=== PATIENT | male | born 1965 | race Two or more races ===

== ENCOUNTER 2023-01-10 08:41 | Outpatient (CLI) | payer OTHER | END 2023-01-10 08:53 | disposition home or self-care (01) | LOC: SONOGRAMA 08:41 | PROVIDERS: ATTEND Pathology Anatomic Pathology & Clinical Pathology | DX: D34 Benign neoplasm of thyroid gland (principal); E04.9 Nontoxic goiter, unspecified; E04.1 Nontoxic single thyroid nodule ==